=== PATIENT | female | born 1930 | race Caucasian/White ===

== ENCOUNTER 2017-12-31 11:33 | Emergency (ER) | payer MEDICARE, BC ==
[2017-12-31 11:39] VITALS: BP 177/92; PULSE 83; RESP 18; TEMP 98.1
--- NOTE | 2017-12-31 12:12 | ED ---
General Adult HPI - General Chief complaint: Psychiatric Symptoms Stated complaint: Mental health Time Seen by Provider: 12/31/17 11:35 Source: patient, RN notes reviewed Mode of arrival: ambulatory Limitations: no limitations - History of Present Illness Initial comments: This is an 87-year-old female who comes into the emergency department with her daughter and granddaughter. According to the patient granddaughter and daughter a nurse saw her yesterday at the office and told her she needs to go to [facility] for psychiatric evaluation. Daughter and the granddaughter who lives with her haven't noticed any acute changes and the patient. They state that she drives how she always is driven and she is getting a little more forgetful over the last few years but nothing grossly changed recently. She still drives across to [place] to go to the [employer]. Patient is not having any complaints herself is not having any hallucinations or hearing any voices. Patient denies suicidal or homicidal ideations. Patient denies any headache patient denies chest pain difficulty breathing shortness of breath. Patient denies abdominal pain patient denies nausea vomiting diarrhea. Patient denies any recent fever chills or cough. Family states they don't think she needs psychiatric evaluation and they don't want her in a psychiatric facility because she does all of her housework by herself and she drives around town by herself she takes care of herself. Family states that the doctor's office did not indicate to them why they wanted her to come here we did not receive a call from the doctor's office. We tried to reach out to the physician however they were unable to give us her cell phone so we can contact her she was not in the office. - Related Data Allergies Allergy/AdvReac Type Severity Reaction Status Date / Time iodine Allergy Unknown Verified 12/31/17 12:17 Review of Systems ROS Statement: Those systems with pertinent positive or pertinent negative responses have been documented in the HPI. ROS Other: All systems not noted in ROS Statement are negative. Past Medical History Past Medical History: Cancer, Diabetes Mellitus Additional Past Medical History / Comment(s): CA History of Any Multi-Drug Resistant Organisms: None Reported Past Surgical History: Bladder Surgery, Bowel Resection, Orthopedic Surgery Additional Past Surgical History / Comment(s): bilateral shoulder surgery, bilateral cataract removal, left finger surgery Past Psychological History: Anxiety Smoking Status: Never smoker Past Alcohol Use History: None Reported Past Drug Use History: None Reported General Exam - General Exam Comments Initial Comments: GENERAL: Patient is well-developed and well-nourished. Patient is nontoxic and well- hydrated and is in no acute distress. ENT: Neck is soft and supple. No significant lymphadenopathy is noted. Oropharynx is clear. Moist mucous membranes. Neck has full range of motion without eliciting any pain. EYES: The sclera were anicteric and conjunctiva were pink and moist. Extraocular movements were intact and pupils were equal round and reactive to light. Eyelids were unremarkable. PULMONARY: Unlabored respirations. Good breath sounds bilaterally. No audible rales rhonchi or wheezing was noted. CARDIOVASCULAR: There is a regular rate and rhythm without any murmurs gallops or rubs. ABDOMEN: Soft and nontender with normal bowel sounds. No palpable organomegaly was noted. There is no palpable pulsatile mass. SKIN: Skin is clear with no lesions or rashes and otherwise unremarkable. NEUROLOGIC: Patient is alert and oriented x3. Cranial nerves II through XII are grossly intact. Motor and sensory are also intact. Normal speech, volume and content. Symmetrical smile. MUSCULOSKELETAL: Normal extremities with adequate strength and full range of motion. PSYCHIATRIC: Normal psychiatric evaluation. Normal interpersonal interactions appears functionally intact in deals appropriately with others. No signs of depression. No signs of anxiety. No delusions. No hallucinations. Limitations: no limitations Course Vital Signs 12/31/17 11:34 Temperature 98.1 F Pulse Rate 83 Respiratory 18 Rate Blood Pressure 177/92 O2 Sat by Pulse 96 Oximetry Disposition Clinical Impression: Dementia Disposition: HOME SELF-CARE Condition: Good Instructions: Dementia (ED) Is patient prescribed a controlled substance at d/c from ED?: No Referrals: Andreina Cruz MD [Primary Care Provider] - 1-2 days Time of Disposition: 12:19
== END 2017-12-31 12:33 | disposition home or self-care (01) ==
LOC: EC 11:33
DX: F03.90 Unspecified dementia, unspecified severity, without behavioral disturbance, psychotic disturbance, mood disturbance, and anxiety (principal); Z91.048 Other nonmedicinal substance allergy status
CPT/HCPCS: 99283